=== PATIENT | female | born 1985 | race Caucasian/White ===

== ENCOUNTER 2017-01-29 09:38 | Day surgery (SDC) | payer MEDICAID ==
[2017-01-29 10:02] VITALS: BMI 29.6
[2017-01-29 10:31] VITALS: O2SAT 100
--- NOTE | 2017-01-29 11:25 | CP.SDSHP ---
Same Day Surgery H & P - History Proposed Procedure: US guided FNA of neck node. Pre-Op Diagnosis: Cervical lymphadenopathy - Allergies Allergies: Allergies No Known Allergies Allergy (Verified 02/01/16 18:25) - Physical Exam Vital Signs: Vital Signs 01/29/17 09:57 Temperature 98.1 F Pulse Rate 63 Respiratory 20 Rate Blood Pressure 105/71 O2 Sat by Pulse 100 Oximetry Mental Status: Alert & Oriented x3 Neuro: WNL Heart: WNL Lungs: WNL - Impression Impression: Pt with borderline large left neck node long the carotid artery measuring 1.7 cm. Plan US guided FNA. Pt. Evaluated Today:Candidate for Anesthesia & Procedure: No - Date & Time Date: 01/29/17 Time: 11:00 Short Stay Discharge - Short Stay Discharge Admitting Diagnosis/Reason for Visit: NECK LAD Disposition: HOME/ ROUTINE
--- NOTE | 2017-01-29 11:26 | PCM.SURG1 ---
Surgeon's Initial Post Op Note - Surgeon's Notes Surgeon: Mejia Carrasco MD Sales Operations Director: NONE Type of Anesthesia: Local Pre-Operative Diagnosis: Lymphadenopathy Operative Findings: US showed a 1.7 cm left neck node Post-Operative Diagnosis: Lymphadenopathy Operation Performed: US guided FNA Specimen/Specimens Removed: 20 g FNA x 6 Estimated Blood Loss: EBL {In ML}: 1 Blood Products Given: N/A Drains Used: No Drains Post-Op Condition: Good Date of Surgery/Procedure: 01/29/17 Time of Surgery/Procedure: 11:25
--- NOTE | 2017-01-29 11:33 | US ---
PROCEDURE: Date of procedure: 01/29/2017 Procedure: Ultrasound-guided FNA of left cervical lymph node Ultrasound guidance for biopsy, [id number] HISTORY: Enlarged cervical lymph nodes. TECHNIQUE: Following informed consent and procedure time-out, limited ultrasound patient's left neck demonstrates a borderline large lymph node which is ovoid shape and hypoechoic. The largest lymph node measures 1.7 cm. After the patient neck was prepped and draped in the usual sterile fashion and the skin anesthetized with lidocaine, ultrasound guided FNA was performed. A 25 g needle was advanced under US guidance into the lymph node. A total of 6 passes were made. Specimen were placed in RPMI for flow cytometry and sent for routine histology. A post biopsy ultrasound showed no hematoma IMPRESSION: Ultrasound-guided FNA of enlarged left cervical lymph node.
[2017-01-29 12:06] VITALS: BP 112/72; PULSE 90; RESP 18; TEMP 97.2
== END 2017-01-29 12:08 | disposition home or self-care (01) ==
LOC: C.SPRAD 09:38
PROVIDERS: ATTEND Radiology Vascular & Interventional Radiology
DX: R59.0 Localized enlarged lymph nodes (principal)

== ENCOUNTER 2017-04-02 13:18 | Emergency (ER) | payer MEDICAID ==
[2017-04-02 13:18] VITALS: BMI 29.6
[2017-04-02 13:29] VITALS: BP 119/78; PULSE 72; RESP 20; TEMP 98; O2SAT 100
[2017-04-02] MEDS ORDERED: Lidocaine 2% Inj (20ml) INFIL ONE (13:39)
[2017-04-02] MEDS ORDERED: Bacitracin 500 Units/gm Oint Foilpak UD TOP ONE (13:50)
--- NOTE | 2017-04-02 13:54 | C.PDOC ---
History Of Present Illness 31 y/o female presents to ED with complaints of right ear pain since yesterday. Patient states she got right tragus piercing 1 week ago and yesterday developed pain and swelling to the area. Patient reports not being able to take earring out because front part of earring not visible. Patient denies discharge, fever, active bleeding or any other complaints at this time. Time Seen by Provider: 04/02/17 13:32 Chief Complaint (Nursing): ENT Problem History Per: Patient, Warpman History/Exam Limitations: Language Barrier Onset/Duration Of Symptoms: Days Current Symptoms Are (Timing): Still Present Quality (Ear): Foreign Body Past Medical History Reviewed: Historical Data, Nursing Documentation, Vital Signs Vital Signs: Last Vital Signs Temp 98 F 04/02/17 13:20 Pulse 72 04/02/17 13:20 Resp 20 04/02/17 13:20 BP 119/78 04/02/17 13:20 Pulse Ox 100 04/02/17 14:18 - Medical History PMH: Anemia Denies: Chronic Kidney Disease Surgical History: Tonsillectomy (01/28/2016) Family History: States: Unknown Family Hx - Social History Hx Tobacco Use: No Hx Alcohol Use: No Hx Substance Use: No - Immunization History Hx Tetanus Toxoid Vaccination: No Hx Influenza Vaccination: No Hx Pneumococcal Vaccination: No Review Of Systems Except As Marked, All Systems Reviewed And Found Negative. Constitutional: Negative for: Fever, Chills ENT: Positive for: Ear Pain. Negative for: Ear Discharge Skin: Negative for: Rash Physical Exam - Physical Exam Appears: Non-toxic, No Acute Distress Skin: Normal Color, Warm Head: Atraumatic, Normacephalic Eye(s): bilateral: Normal Inspection, EOMI Ear(s): Right: Other (Crusting along front side of piercing, no earring visualized) Nose: Normal Oral Mucosa: Moist Chest: Symmetrical Respiratory: No Accessory Muscle Use Neurological/Psych: Oriented x3, Normal Speech, Normal Motor, Normal Sensation, Other (No focal deficits) ED Course And Treatment O2 Sat by Pulse Oximetry: 100 (RA) Pulse Ox Interpretation: Normal Progress Note: Lidocaine used and earring removed completely, No incision made. Discussed wound care and follow up with PMD in 1-2 days. Reevaluation Time: 13:40 (On reassessment, patient is resting comfortably, and is in no acute distress. Patient was instructed to follow up with physician/ clinic in 1-2 days for further evaluation.) Reassessment Condition: Improved Disposition - Disposition Disposition: HOME/ ROUTINE Disposition Time: 13:50 Condition: STABLE Additional Instructions: Do not put earring in. Allow for complete healing. Vaya a thapa mdico o la cl romulo en 1-3 salazar sin falta, para mas evaluacin. [place] los medicamentos norberto indicado. Volver a la aisha de emergencia en cualquier momento si los sntomas persisten o empeoran. Prescriptions: Bacitracin OINT 1 applic TP BID #1 tube Cephalexin [cephalexin] 500 mg PO BID #14 cap Instructions: Ear Foreign Body (ED) Forms: [employer] (Slovenian) - Clinical Impression Clinical Impression: Ear foreign body - Scribe Statement The provider has reviewed the documentation as recorded by the Scribe Serena Richardson All medical record entries made by the Scribe were at my direction and personally dictated by me. I have reviewed the chart and agree that the record accurately reflects my personal performance of the history, physical exam, medical decision making, and the department course for this patient. I have also personally directed, reviewed, and agree with the discharge instructions and disposition.
[2017-04-02] MEDS ORDERED: Bacitracin 500 Units/gm Oint Foilpak UD ONE (13:57)
== END 2017-04-02 13:58 | disposition home or self-care (01) ==
LOC: C.ER 13:18
DX: S00.451A Superficial foreign body of right ear, initial encounter (principal); X58.XXXA Exposure to other specified factors, initial encounter; Y93.89 Activity, other specified; Y92.89 Other specified places as the place of occurrence of the external cause

== ENCOUNTER 2018-06-19 09:03 | Emergency (ER) | payer MEDICAID ==
[2018-06-19] MEDS ORDERED: Sodium Chloride 0.9% 1,000 ML IV ONE ×2 (09:38→12:08)
--- NOTE | 2018-06-19 09:45 | C.PDOC ---
History Of Present Illness 33 y/o female presents to the ER complaining of lower abdominal pain which has been present for the past 2 weeks. Patient states that her LMP was in April 2018. She notes that she has an IUD. Patient reports that she had some burning with urination. Currently, patient denies having fever, chills, vomiting, diarrhea, hematuria, and dysuria. Time Seen by Provider: 06/19/18 09:08 Chief Complaint (Nursing): Abdominal Pain History Per: Patient History/Exam Limitations: no limitations Onset/Duration Of Symptoms: Days Current Symptoms Are (Timing): Still Present Severity: Moderate Past Medical History Reviewed: Historical Data, Nursing Documentation, Vital Signs Vital Signs: Last Vital Signs Temp 98.0 F 06/19/18 09:20 Pulse 79 06/19/18 09:20 Resp 18 06/19/18 09:20 BP 100/67 06/19/18 09:20 Pulse Ox 100 06/19/18 09:20 - Medical History PMH: Anemia Denies: Chronic Kidney Disease Surgical History: Tonsillectomy (01/28/2016) Family History: States: No Known Family Hx - Social History Hx Tobacco Use: No Hx Alcohol Use: No Hx Substance Use: No - Immunization History Hx Tetanus Toxoid Vaccination: No Hx Influenza Vaccination: No Hx Pneumococcal Vaccination: No Review Of Systems Except As Marked, All Systems Reviewed And Found Negative. Constitutional: Negative for: Fever, Chills Gastrointestinal: Positive for: Abdominal Pain. Negative for: Nausea, Vomiting, Diarrhea Genitourinary: Negative for: Dysuria, Hematuria Physical Exam - Physical Exam Appears: Non-toxic, No Acute Distress Skin: Normal Color, Warm, Dry Head: Atraumatic, Normacephalic Eye(s): bilateral: Normal Inspection Nose: Normal Oral Mucosa: Moist Neck: Supple Chest: Symmetrical Cardiovascular: Rhythm Regular Respiratory: Normal Breath Sounds, No Rales, No Rhonchi, No Wheezing Gastrointestinal/Abdominal: Soft, Tenderness (suprapubic tenderness), No Guarding, No Rebound Neurological/Psych: Oriented x3, Normal Speech ED Course And Treatment - Laboratory Results Result Diagrams: 06/19/18 09:58 06/19/18 09:58 Lab Interpretation: No Acute Changes Urine POC: Negative O2 Sat by Pulse Oximetry: 100 (RA) Pulse Ox Interpretation: Normal - CT Scan/US No standard instances Other Rad Studies (CT/US): Read By Radiologist, Radiology Report Reviewed CT/US Interpretation: FINDINGS: UTERUS: Measures 9.5 x 3.7 x 5.5 cm. Anteverted. ENDOMETRIUM: Measures 7 mm in diameter. IUD appears in satisfactory position. CERVIX: No cervical abnormality identified. Cervix length measures approximately 2.9 cm. RIGHT OVARY: Measures 4.5 x 2.9 x 4.8 cm. Blood flow is demonstrated. 2.5 x 3.1 x 3.1 cm complex cyst. LEFT OVARY: Measures 3.7 x 2.2 x 3.2 cm. Blood flow is demonstrated. FREE FLUID: No significant free fluid noted. OTHER FINDINGS: None. IMPRESSION: IUD. Complex right ovarian cyst measures approximately 3.1 cm. Recommend 6 week ultrasound follow-up to assess for resolution. Progress Note: Treated with IVF NSS and toradol. On re-evaluation abdomen soft mild tenderness Reassessment Condition: Improved Medical Decision Making Medical Decision Making: Plan: --Labs --UA --HCG, Qual. Disposition Counseled Patient/Family Regarding: Studies Performed, Diagnosis, Need For Followup, Rx Given - Disposition [facility] [Outside] [facility] [Outside] Disposition: HOME/ ROUTINE Disposition Time: 12:45 Condition: IMPROVED Additional Instructions: Follow up with [facility] for further evaluation Prescriptions: Ibuprofen [Motrin] 1 tab PO TID PRN #30 tab PRN Reason: Pain Instructions: Ovarian Cyst (DC) Forms: [employer] (Albanian) Print Language: MOHAWK - POA Present On Arrival: None - Clinical Impression Clinical Impression: Ovarian cyst - PA / COOK CHEF / Resident Statement MD/DO has reviewed & agrees with the documentation as recorded. - Scribe Statement The provider has reviewed the documentation as recorded by the Eleazar Rios Provider Attestation All medical record entries made by the Brettibwoodrow were at my direction and personally dictated by me. I have reviewed the chart and agree that the record accurately reflects my personal performance of the history, physical exam, medical decision making, and the department course for this patient. I have also personally directed, reviewed, and agree with the discharge instructions and disposition.
[2018-06-19 10:06] LABS: BASO % 0.6 % (0.0-2.0); EOS % 0.6 % (0.0-4.0); LYMPH # 1.6 K/uL (1.0-4.3); LYMPH % 35.3 % (20.0-40.0); MEAN CORPUSCULAR HEMOGLOBIN 21.7 pg (27.0-31.0); MEAN CORPUSCULAR HGB CONC 31.2 g/dL (33.0-37.0); MEAN PLATELET VOLUME 8.7 fL (7.2-11.7); MONO # 0.4 K/uL (0.0-0.8); MONO % 8.2 % (0.0-10.0); NEUT # 2.5 K/uL (1.8-7.0); NEUT % 55.3 % (50.0-75.0); NRBC % 0.1 % (0.0-2.0); RBC 4.71 Mil/uL (3.80-5.20); RED CELL DISTRIBUTION WIDTH 16.9 % (11.5-14.5); WHITE BLOOD COUNT 4.5 K/uL (4.8-10.8)
[2018-06-19 10:07] LABS: HCG,QUALITATIVE URINE NEGATIVE (NEGATIVE)
[2018-06-19 10:08] LABS: HEMOGLOBIN 10.2 g/dL (11.0-16.0); MEAN CELL VOLUME 69.6 fL (81.0-99.0)
[2018-06-19 10:11] LABS: SQUAMOUS EPITHIAL 1 /hpf (0-5); URINE BILIRUBIN NEGATIVE (NEGATIVE); URINE BLOOD NEGATIVE (NEGATIVE); URINE CLARITY Clear (Clear); URINE COLOR Straw (YELLOW); URINE GLUCOSE (UA) NORMAL (Normal); URINE LEUKOCYTE ESTERASE NEG Leu/uL (Negative); URINE PROTEIN NEGATIVE (NEGATIVE); URINE UROBILINOGEN NORMAL mg/dL (0.2-1.0)
[2018-06-19 10:16] LABS: ALB/GLOB RATIO 1.6 (1.0-2.1); ALBUMIN 4.4 g/dL (3.5-5.0); ALT/SGPT 30 U/L (9-52); AST/SGOT 20 U/L (14-36); BLOOD UREA NITROGEN 13 mg/dL (7-17); CALCIUM 9.2 mg/dl (8.6-10.4); GFR NON-AFRICAN AMERICAN > 60; LIPASE 55 U/L (23-300)
[2018-06-19 11:24] VITALS: TEMP 98; O2SAT 100
[2018-06-19 11:27] VITALS: BMI 28.0
[2018-06-19 12:08] VITALS: BP 92/62; PULSE 68; RESP 19
[2018-06-19] MEDS ORDERED: Sodium Chloride 0.9% 1,000 ML ONE (12:12)
--- NOTE | 2018-06-19 12:17 | US ---
Date of service: 06/19/2018 HISTORY: vaginal bleeding COMPARISON: None available. TECHNIQUE: Real-time transabdominal pelvic ultrasound was performed. In addition a transvaginal pelvic ultrasound was necessary to better depict pelvic anatomy. FINDINGS: UTERUS: Measures 9.5 x 3.7 x 5.5 cm. Anteverted. ENDOMETRIUM: Measures 7 mm in diameter. IUD appears in satisfactory position. CERVIX: No cervical abnormality identified. Cervix length measures approximately 2.9 cm. RIGHT OVARY: Measures 4.5 x 2.9 x 4.8 cm. Blood flow is demonstrated. 2.5 x 3.1 x 3.1 cm complex cyst. LEFT OVARY: Measures 3.7 x 2.2 x 3.2 cm. Blood flow is demonstrated. FREE FLUID: No significant free fluid noted. OTHER FINDINGS: None. IMPRESSION: IUD. Complex right ovarian cyst measures approximately 3.1 cm. Recommend 6 week ultrasound follow-up to assess for resolution.
== END 2018-06-19 13:00 | disposition home or self-care (01) ==
LOC: C.ER 09:03
DX: N83.209 Unspecified ovarian cyst, unspecified side (principal)
CPT/HCPCS: 76830; 76856; 80053; 81001; 83690; 84703; 85025; 96361; 96374; 99284; J1885; J7030